=== PATIENT | female | born 1970 | race Caucasian/White ===

== ENCOUNTER 2017-04-29 04:54 | Day surgery (SDC) | payer OTHER ==
[2017-04-24 17:06] VITALS: BMI 25.6
[2017-04-29] MEDS ORDERED: MIDAZOLAM HCL 2 MG/2 ML SINGLE DOSE VIAL ONE (10:27)
[2017-04-29] MEDS ORDERED: PROPOFOL 20 ML ONE ×2 (10:46)
[2017-04-29] MEDS ORDERED: PROMETHAZINE HCL 25 MG/1 ML VIAL IVPUSH PRN (11:34)
[2017-04-29] MEDS ORDERED: ONDANSETRON 4 MG/2 ML VIAL IVPUSH PRN (11:34)
[2017-04-29] MEDS ORDERED: oxyCODONE HCL 5 MG TABLET PO PRN ×2 (11:34→12:45)
[2017-04-29 12:35] VITALS: TEMP 98
--- NOTE | 2017-04-29 12:44 | HP ---
History & Physical Update - History History: No Change - Physical Physical: No Change - Assessment Assessment: No Change - Plan Plan: No Change
[2017-04-29] MEDS ORDERED: ACETAMINOPHEN 325 MG TABLET (FP) PO PRN (12:45)
[2017-04-29] MEDS ORDERED: IBUPROFEN 400 MG TABLET (FP) PO PRN (12:45)
--- NOTE | 2017-04-29 12:56 | OP ---
Operative Note - Note: Operative Date: 04/29/17 Pre-Operative Diagnosis: Irregular Bleeding. Endometrial polyps Operation: Hysteroscopic Myomectomy. Suction DC Findings: Some endodmetrial polyp Intramural myoma Post-Operative Diagnosis: Other (Intramural myomas) Surgeon: Sophie Mott Anesthesiologist/TRAIN CONDUCTOR: Preet Vinson Anesthesia: General Estimated Blood Loss (mls): 5 Operative Report Dictated: Yes
[2017-04-29 14:03] VITALS: BP 96/62; PULSE 74
--- NOTE | 2017-04-29 20:29 | OP ---
DATE OF OPERATION: 04/29/2017 PREOPERATIVE DIAGNOSIS: Endometrial polyp. OPERATION: Hysteroscopic myomectomy, suction dilatation and curettage. POSTOPERATIVE DIAGNOSIS: Endometrial polyp. SURGEON: Sophie Mott MD ANESTHESIA: General. ANESTHESIOLOGIST: Preet Vinson MD DESCRIPTION OF PROCEDURE: Patient was taken to the operating room, placed in dorsal lithotomy position, prepped and draped in the usual sterile fashion. A timeout was performed in accordance with hospital regulation. Speculum was placed in the vagina. Anterior lip of the cervix was grasped with a single-tooth tenaculum. Cervix then dilated to accommodate the operative hysteroscope. Submucosal myoma was seen, some small polyps. Cautery and cutting of the myoma was done. Specimen was submitted to Pathology. Hemostasis was achieved. Estimated blood loss: Less than 10 mL. All instruments then removed after suction D&C had been performed. SOPHIE MOTT M.D. [id number]
--- NOTE | 2017-04-30 19:13 | PATH ---
Surgical Pathology Report Patient Name: KRISTEN OLEA [facility]. Rec. #: [id number] /Age/Gender: 1970 (Age: 46) / F Account: [id number] Location: [facility] SURGICAL Taken: 04/29/2017 Received: 04/29/2017 Reported: 04/30/2017 Physicians: Sophie Mott M.D. Specimen(s) Received UTERINE CONTENTS Clinical History Endometrial polyp Final Diagnosis ENDOMETRIUM, UTERINE CONTENTS, DILATATION AND CURETTAGE: ENDOCERVICAL POLYP, PROLIFERATIVE ENDOMETRIUM, AND SUPERFICIAL FRAGMENTS OF MYOMETRIUM. Electronically Signed Yanet Myers M.D. Gross Description Received in formalin labeled "contents of uterus," is a 1.8 x 1.3 x 0.2 cm aggregate of wells soft tissue fragments. The formalin is filtered and the specimen is entirely submitted in one cassette. /04/29/201704/29/2017
== END 2017-04-29 14:03 | disposition home or self-care (01) ==
LOC: JASU-SURG 04:54
PROVIDERS: ATTEND Obstetrics & Gynecology
PROC: 0UB98ZZ Excision of Uterus, Via Natural or Artificial Opening Endoscopic (ICD-10-PCS; principal; 2017-04-29 10:00)
PROC: 0UB98ZX Excision of Uterus, Via Natural or Artificial Opening Endoscopic, Diagnostic (ICD-10-PCS; 2017-04-29 10:00)
PROC: 0UDB8ZX Extraction of Endometrium, Via Natural or Artificial Opening Endoscopic, Diagnostic (ICD-10-PCS; 2017-04-29 10:00)
DX: N84.0 Polyp of corpus uteri (principal); D25.0 Submucous leiomyoma of uterus
CPT/HCPCS: 84703; 88305-TC; 94760